=== PATIENT | male | born 1960 | race Caucasian/White ===

== ENCOUNTER 2018-03-16 01:18 | Observation (INO) | payer OTHER ==
[2018-03-16] VITALS (12 sets, daily range): BP systolic 105–136; BP diastolic 70–86
[~2018-03-16] VITALS: Ht 172.7 cm; Wt 93.9 kg
[~2018-03-16 01:18] MED LIST: ALFU10TA9 PO; TRAM-420 PO
[2018-03-16] MEDS ORDERED: NORMOSOL R SOLN(*) 1000 ML BAG 1,000 ML IV PRN (06:00)
[2018-03-16] MEDS ORDERED: LIDOCAINE/SOD BICARB 8.4% SYR ID ONE (06:00)
[2018-03-16] MEDS ORDERED: ceFAZolin(*) 2GM/D5W 50ML 50 ML IVPB ONE (06:00)
[2018-03-16] MEDS ORDERED: FAMOTIDINE 20 MG TAB PO ONE (06:00)
[2018-03-16] MEDS ORDERED: MIDAZOLAM 2 MG/2 ML VIAL IVP PRN (06:00)
[2018-03-16] MEDS ORDERED: THROMBIN (BOVINE) 20,000 UNIT VIAL ONE (06:10)
[2018-03-16] MEDS ORDERED: ONDANSETRON 4 MG/2 ML VIAL ONE (06:44)
[2018-03-16] MEDS ORDERED: LIDOCAINE MPF 1% 5 ML VIAL ONE (06:44)
[2018-03-16] MEDS ORDERED: PROPOFOL EMUL(*) 10MG/ML 20 ML 40 ML ONE (06:44)
[2018-03-16] MEDS ORDERED: DEXAMETHASONE SOD PHOS 10MG/ML ONE (06:44)
[2018-03-16] MEDS ORDERED: fentaNYL CITR 100 MCG/2 ML AMP ONE ×5 (06:45→09:55)
[2018-03-16] MEDS ORDERED: hydrALAZINE HCL 20 MG/ML VIAL ONE (07:35)
--- NOTE | 2018-03-16 07:53 | RADIOLOGY IMAGING REPORT ---
FACILITY: [facility] - [place] PATIENT NAME: Vijay Solis : 1960 MR: [id number] V: [id number] EXAM DATE: ORDERING PHYSICIAN: ROSENDO JACOBSEN TECHNOLOGIST: Location: [facility] [place] Patient: Vijay Solis : 1960 Visit/Account:[id number] Date of Sevice: 03/16/2018 LUMBAR SPINE 1 VIEW HISTORY: L3-4 disc herniation. COMPARISON: None. TECHNIQUE: Lateral view of the lumbar spine.. FINDINGS: There are 5 nonrib-bearing lumbar type vertebral bodies. Lateral view of the lumbar spine w as obtained. There are retractors posterior to the L3 and L4 vertebral bodies. There are surgical spo nge and surgical instrument posterior to the L2-3 disc space. There is degenerative change of the spi ne, greatest at L3-4. No listhesis. IMPRESSION: 1. Intraoperative lumbar spine x-rays as above. Report Dictated By: Fela Short at 03/16/2018 7:46 AM Report E-Signed By: Fela Short at 03/16/2018 7:48 AM WSN:[id number]
[2018-03-16] MEDS ORDERED: SUGAMMADEX SOD 500 MG/5 ML SDV ONE (08:51)
[2018-03-16] MEDS ORDERED: SUGAMMADEX SOD 200 MG/2 ML SDV ONE ×2 (08:51)
[2018-03-16] MEDS ORDERED: diphenhydrAMINE 25 MG CAP PO PRN (09:50)
[2018-03-16] MEDS ORDERED: APAP/HYDROCODONE 325/5 TAB PO PRN (09:50)
[2018-03-16] MEDS ORDERED: BENZOCAINE/MENTHOL 1 EACH LOZG PO PRN (09:50)
[2018-03-16] MEDS ORDERED: LR(*) 1000 ML BAG 1,000 ML IV PRN (09:50)
[2018-03-16] MEDS ORDERED: BISACODYL 10 MG SUPP PR PRN (09:50)
[2018-03-16] MEDS ORDERED: MAGNESIUM HYDROXIDE* 30ML UDCP PO PRN (09:50)
[2018-03-16] MEDS ORDERED: ACETAMINOPHEN 500 MG TAB PO PRN (09:50)
[2018-03-16] MEDS ORDERED: ACETAMINOPHEN(*)1000 MG/100 ML 100 ML IVPB PRN (09:50)
[2018-03-16] MEDS ORDERED: HYDROmorphone HCL 2 MG/ML SDV IVP PRN (09:50)
[2018-03-16] MEDS ORDERED: FLUSH 10 ML SYR IVP PRN (09:50)
[2018-03-16] MEDS ORDERED: ONDANSETRON 4 MG/2 ML VIAL IVP PRN (09:50)
[2018-03-16] MEDS ORDERED: HYDROmorphone HCL 2 MG/ML SDV ONE (10:10)
[2018-03-16] MEDS: oxyCODONE HCL 5 MG CAP PO PRN ×3 (11:43→23:54)
--- NOTE | 2018-03-16 11:50 | Hospitalist Consultation ---
History of Present Illness Requesting Physician Dr. Dodd Reason for Consult Medication Management Chief Complaint s/p laminectomies History of Present Illness He was admitted s/p laminectomies. It was reported the surgery went well and without complication. History Problems: (1) BPH (benign prostatic hyperplasia) Status: Chronic Home Meds Reported Medications Tramadol Hcl (TRAMADOL HCL) 50 Mg Tablet, 50-100 MG PO Q4-6H Y for PAIN, TAB 03/09/18 Alfuzosin Hcl (ALFUZOSIN HCL) 10 Mg Tab.er.24h, 10 MG PO QHS 03/09/18 Allergies: Coded Allergies: No Known Drug Allergies (Unverified , 03/09/18) Hx Smoking: Yes (1 PPD X 30 YRS. QUIT 2011) Smoking Status: Former Smoker Caffeine Intake: Coffee, Soda Caffeine/Cups Per Day: 4 Hx Alcohol Use: Yes (Occaaionally with meals) Alcohol Used: Beer, Wine Hx Substance Use Disorder: No Social Drug Use: Never History of IV Drug Use: No Review of Systems All Systems Reviewed/Normal: Yes, Except as Noted Exam Vital Signs Vital Signs Date Time Temp Pulse Resp B/P (MAP) Pulse Ox O2 Delivery O2 Flow Rate FiO2 03/16/18 11:24 94 Nasal Cannula 4.0 03/16/18 11:00 73 18 03/16/18 05:27 97.6 136/86 (103) General Appearance: Alert, Awake, No Acute Distress, Afebrile Neuro: No Gross deficits Cardiovascular: Regular Rate and Rhythm Respiratory: No Respiratory Distress, Clear to Auscultation GI: Abd Soft and Non-Tender Psych: Alert & Oriented X3, Appropriate Mood & Affect Assessment and Plan Problems: (1) S/P laminectomy Status: Acute Assessment & Plan: Followed by Dr. Dodd (2) BPH (benign prostatic hyperplasia) Status: Chronic Assessment & Plan: He is on chronic treatment with Alfuzosin. Venous Thromboembolism Antithrombotics Is Pt On Any Antithrombotics?: No Prophylaxis Tx Contraindicated Pharmacological Contraindicati: Surgical Contraindication FINESSE MOORE LOSS PREVENTION AGENT March 16, 2018 11:50
[2018-03-16] MEDS ORDERED: DOCU240C84 PO (14:30)
[2018-03-16] MEDS ORDERED: LOR5/325 PO (14:31)
[2018-03-16] MEDS ORDERED: DIA5 PO (14:33)
[2018-03-16] MEDS ORDERED: NS(*) 0.9% 250 ML BAG 250 ML ONE (16:41)
[2018-03-16] MEDS: ceFAZolin(*) 2GM/D5W 50ML 50 ML IVPB SCH (16:43)
[2018-03-16] MEDS ORDERED: ALFUZOSIN HCL 10 MG TABCR PO SCH ×2 (21:00)
[2018-03-16] MEDS: DOCUSATE SODIUM 100 MG CAP PO SCH (21:12)
[2018-03-16] MEDS: DIAZEPAM 5 MG TAB PO PRN (21:16)
[2018-03-17] MEDS: ceFAZolin(*) 2GM/D5W 50ML 50 ML IVPB SCH ×2 (01:06→08:55)
[2018-03-17 03:50] VITALS: BP 114/65
[2018-03-17] MEDS: DIAZEPAM 5 MG TAB PO PRN ×2 (03:58→10:09)
[2018-03-17] MEDS: oxyCODONE HCL 5 MG CAP PO PRN ×2 (05:00→08:56)
[2018-03-17 07:40] VITALS: BP 127/77
[2018-03-17] MEDS ORDERED: LOR5/325 PO (07:56)
[2018-03-17] MEDS ORDERED: DOCU240C84 PO (07:58)
[2018-03-17] MEDS ORDERED: DIA5 PO (07:58)
--- NOTE | 2018-03-17 07:59 | Hospitalist Progress Note ---
Subjective Progress Notes Subjective He has no concerns this morning. He states he is ready to go home. Patient Complains of: Cardiovascular: No: Chest Pain Respiratory: No: Shortness of Breath Physical Exam Vital Signs Date Time Temp Pulse Resp B/P (MAP) Pulse Ox O2 Delivery O2 Flow Rate FiO2 03/17/18 05:48 92 Room Air 03/17/18 03:50 99.1 20 114/65 (81) 1.0 03/16/18 23:51 82 General Appearance: Alert, Awake, No Acute Distress, Afebrile Neuro: No Gross deficits Cardiovascular: Regular Rate and Rhythm Respiratory: No Respiratory Distress, Clear to Auscultation GI: Soft and Non-Tender Psych: Alert & Oriented X3, Appropriate Mood & Affect Assessment and Plan Problems: (1) S/P laminectomy Status: Acute Assessment & Plan: Followed by Dr. Dodd (2) BPH (benign prostatic hyperplasia) Status: Chronic Assessment & Plan: He is on chronic treatment with Alfuzosin. Exam Sepsis Risk: No Definite Risk FINESSE MOORE CERTIFIED ORTHOTIST PRACTICE MANAGER March 17, 2018 07:59
[2018-03-17] MEDS: DOCUSATE SODIUM 100 MG CAP PO SCH (08:53)
[2018-03-17 09:24] VITALS: Ht 172.7 cm; Wt 93.9 kg
--- NOTE | 2018-03-17 15:31 | OPERATIVE REPORT 1 ---
EVENT DATE: March 16, 2018 SURGEON: Jose Dodd MD ANESTHESIOLOGIST: Coy Messina MD ANESTHESIA: General endotracheal anesthesia. RAILROAD INSPECTOR: KIM Mccoy PREOPERATIVE DIAGNOSES Recurrent right L4-L5 disk herniation with right L4 and L5 radiculopathy and bilateral lower extremity neurogenic claudication. POSTOPERATIVE DIAGNOSES 1. Recurrent right L4-L5 disk herniation with right L4 and L5 radiculopathy and bilateral lower extremity neurogenic claudication. 2. Spinal stenosis at L3-L4. PROCEDURE PERFORMED L3 to L5 revision laminectomy and discectomy. INTRAVENOUS FLUIDS 1600 mL ESTIMATED BLOOD LOSS 100 mL IMPLANTS USED None. SPECIMENS None. DRAINS None. COMPLICATIONS None. DISPOSITION Post-anesthesia care unit. INDICATIONS FOR SURGERY Mr. Solis is a 57-year-old male who several months ago underwent L4-L5 laminectomy and discectomy. He did very well initially and then had a recurrence of his right lower extremity pain, numbness, and tingling. This was primarily in an L4 and L5 distribution. In addition, he did note some bilateral lower extremity weakness and heaviness with prolonged ambulation suggestive of a neurogenic claudication. We reimaged his spine and found a recurrent disk herniation lying just medial to the right L4 pedicle. In addition to this, there was [id number] bilateral lateral recess stenosis at L3-L4 that seemed to be putting significant compression on the neural elements. Secondary to ongoing pain, numbness, and tingling in his legs , he was offered and elected to undergo a revision surgery in the form of an L3 to L5 laminectomy with L4-L5 discectomy. Prior to surgery, I explained in detail to the patient possible risks of surgery. This included the risk of bleeding, infection, nerve root injury, spinal fluid leak, meningitis, persistent and/or worsening pain, , blindness, sexual dysfunction, autonomic nervous system dysfunction, and other unforeseen medical and surgical complications. An understanding that spinal surgery is more predictive in eliminating extremity discomfort than axial spine pain was stressed. The increased risks secondary to this being a revision procedure were also discussed. DESCRIPTION OF PROCEDURE On the day of surgery, the patient was met in the preoperative hold area, and all questions were answered. The operative site was identified and marked by myself. The patient was brought in good condition to the operating room, and after succumbing to anesthesia, was placed in the prone position on a Jose Cruz table. All bony protuberances and soft tissues were well padded in the standard fashion. Care was taken to maintain appropriate perfusion pressures during anesthesia. Preoperative antibiotics were administered according to the appropriate timing schedule. At the conclusion of the procedure, sponge and needle counts were correct times two. Final timeout was undertaken to confirm correct patient, correct levels, and correct surgery. The patient was then prepped and draped in the standard sterile orthopedic fashion. An incision was made over the intended surgical levels, and sharp dissection was carried out down to the posterior elements. Soft tissues were elevated off the posterior elements in a subperiosteal manner , and a lateral radiograph was obtained to confirm correct spinal levels. The spinous process of L3 was then removed with a Leksell rongeur, and the midline of that lamina was thinned. A Myers curette was used to undermine the superior insertion of the ligamentum flavum from the inferior aspect of the L3 lamina. The canal was entered, and a Po elevator was used to separate the dura and any dural adhesions from surrounding soft tissue and bone. Kerrison 3.0 and 4.0 punches were used to perform midline decompression. Bilateral lateral recess decompressions were then performed at that L3-L4 level. Attention was then turned distally, and the Marston elevator was used to tease any scar material away from the dura. As this was accomplished, bilateral lateral recess revision decompressions were performed at L4-L5. On the right side, I mobilized the dura using the Po elevator anterior to the dura in the nerve root, and I was able to retract the dura and the L5 nerve root medially. A relatively large free disk fragment was identified and removed. The Marston elevator was then used to explore the floor of the canal, sweeping and searching for further disk fragments. All loose disk fragments were removed. The wound was then irrigated with copious sterile saline solution. Bilateral lateral recesses were once again checked at the L3-L4 and L4-L5 levels. The foramina were widely patent for the L3, L4,. and L5 nerve roots. The wound was once again irrigated with copious sterile saline solution and then closed in layers using interrupted sutures for the deep fascia, inverted interrupted sutures for the subcutaneous tissue, and a running subcuticular skin stitch. Sponge and needle counts were correct times two. POSTOPERATIVE CARE PLAN Mr. Solsi will be discharged home once he meets discharge criteria. This may be today, although he may require a single night's stay in the hospital. He will follow up with me in two weeks' time for wound check and examination. ALEC
== END 2018-03-17 08:23 | disposition home or self-care (01) ==
LOC: OR 01:18 → MED 11:11
PROVIDERS: ADMIT Orthopaedic Surgery; ATTEND Orthopaedic Surgery
DX: M51.16 Intervertebral disc disorders with radiculopathy, lumbar region (principal); M48.062 Spinal stenosis, lumbar region with neurogenic claudication
CPT/HCPCS: 36415; 63030; 63035; 72020; 86850; 86900; 86901; 97116; 97161; G0378; J0131; J0360; J1100; J1170; J2001; J2405; J2704; J3010; J7050; J0690

== ENCOUNTER 2018-08-26 00:38 | Inpatient (IN) | payer OTHER ==
[~2018-08-26] VITALS: Ht 175.3 cm; Wt 91.6 kg
[2018-08-26] VITALS (8 sets, daily range): BP systolic 119–140; BP diastolic 79–90
[~2018-08-26 00:38] MED LIST changes: +DIA5 PO; +DOCU240C84 PO; +LOR5/325 PO
[2018-08-26] MEDS ORDERED: ROPIVACAINE 0.2% 20 ML VIAL ONE (09:54)
[2018-08-26] MEDS ORDERED: THROMBIN (BOVINE) 20,000 UNIT VIAL ONE (09:54)
[2018-08-26] MEDS ORDERED: PROPOFOL EMUL(*) 10MG/ML 20 ML 20 ML ONE (10:03)
[2018-08-26] MEDS ORDERED: fentaNYL CITR 250 MCG/5 ML AMP ONE (10:03)
[2018-08-26] MEDS ORDERED: LIDOCAINE MPF 1% 5 ML VIAL ONE (10:04)
[2018-08-26] MEDS ORDERED: ONDANSETRON 4 MG/2 ML VIAL ONE (10:04)
[2018-08-26] MEDS ORDERED: PROPOFOL EMUL(*) 10MG/ML 20 ML 60 ML ONE ×2 (10:19→14:37)
[2018-08-26] MEDS ORDERED: NS 0.9% 20 ML SDV 20 ML ONE (10:22)
[2018-08-26] MEDS ORDERED: REMIFENTANIL HCL 1 MG VIAL ONE (10:31)
[2018-08-26] MEDS ORDERED: KETAMINE HCL 200 MG/20 ML MDV ONE (10:32)
[2018-08-26] MEDS ORDERED: MIDAZOLAM 2 MG/2 ML VIAL IVP PRN (12:25)
[2018-08-26] MEDS ORDERED: LIDOCAINE/SOD BICARB 8.4% SYR ID ONE (12:25)
[2018-08-26] MEDS ORDERED: PREGABALIN 150 MG CAPSULE PO ONE (12:25)
[2018-08-26] MEDS ORDERED: ACETAMINOPHEN 500 MG TAB PO ONE (12:25)
[2018-08-26] MEDS ORDERED: NORMOSOL R SOLN(*) 1000 ML BAG 1,000 ML IV PRN (12:25)
[2018-08-26] MEDS ORDERED: ceFAZolin(*) 2GM/D5W 50ML 50 ML IVPB ONE (12:25)
[2018-08-26] MEDS ORDERED: FAMOTIDINE 20 MG TAB PO ONE (12:25)
[2018-08-26] MEDS ORDERED: SUCCINYLCHOL CHL 200MG/10ML VL ONE (14:15)
[2018-08-26] MEDS ORDERED: HYDROmorphone HCL 2 MG/ML SDV ONE (14:26)
[2018-08-26] MEDS ORDERED: fentaNYL CITR 100 MCG/2 ML AMP ONE ×2 (16:55→17:34)
[2018-08-26] MEDS ORDERED: diphenhydrAMINE 25 MG CAP PO PRN (17:15)
[2018-08-26] MEDS ORDERED: BISACODYL 10 MG SUPP PR PRN (17:15)
[2018-08-26] MEDS ORDERED: ACETAMINOPHEN 500 MG TAB PO PRN (17:15)
[2018-08-26] MEDS ORDERED: ONDANSETRON 4 MG/2 ML VIAL IVP PRN (17:15)
[2018-08-26] MEDS ORDERED: FLUSH 10 ML SYR IVP PRN (17:15)
[2018-08-26] MEDS ORDERED: HYDROmorphone HCL 2 MG/ML SDV IVP PRN (17:15)
[2018-08-26] MEDS ORDERED: APAP/HYDROCODONE 325/5 TAB PO PRN (17:15)
[2018-08-26] MEDS ORDERED: BENZOCAINE/MENTHOL 1 EACH LOZG PO PRN (17:15)
[2018-08-26] MEDS ORDERED: ACETAMINOPHEN(*)1000 MG/100 ML 100 ML IVPB PRN (17:15)
[2018-08-26] MEDS ORDERED: MAGNESIUM HYDROXIDE* 30ML UDCP PO PRN (17:15)
[2018-08-26] MEDS ORDERED: LR(*) 1000 ML BAG 1,000 ML IV PRN (17:15)
--- NOTE | 2018-08-26 18:42 | Hospitalist Progress Note ---
Subjective Progress Notes Subjective Patient seen post-op. Reviewed PMHx (BPH, lumbar disc disease) and medications (Uroxatral). At present he reports doing well. No CP/SOB/N/V. Physical Exam Vital Signs Date Time Temp Pulse Resp B/P (MAP) Pulse Ox O2 Delivery O2 Flow Rate FiO2 08/26/18 18:22 98.2 63 16 140/90 (107) 94 Nasal Cannula 2.0 General Appearance: Alert, Awake Cardiovascular: Regular Rate and Rhythm Respiratory: Clear to Auscultation Psych: Alert & Oriented X3 Assessment and Plan Problems: (1) BPH (benign prostatic hyperplasia) Status: Chronic Assessment & Plan: Will continue his alfuzosin 10mg qHS. (2) S/P lumbar fusion Status: Acute Assessment & Plan: He appears to have tolerated OR/anesthesia fairly well. As per Dr. Dodd. BREA URENA MD Aug 26, 2018 18:41
[2018-08-26] MEDS: oxyCODONE HCL 5 MG CAP PO PRN (19:29)
--- NOTE | 2018-08-26 20:02 | RADIOLOGY IMAGING REPORT ---
FACILITY: [facility] - [place] PATIENT NAME: Vijay Solis : 1960 MR: [id number] V: [id number] EXAM DATE: ORDERING PHYSICIAN: ROSENDO JACOBSEN TECHNOLOGIST: Location: [facility] - [place] Patient: Vijay Solis : 1960 Visit/Account:[id number] Date of Sevice: 08/26/2018 Study: C-ARM FLUORO 1 HR Indication: Pain Comparison study: None available Findings: 3 intraoperative spot films demonstrates the presence of a posterior L4-5 fusion and discec darell. A fluoroscopy exposure of 2.18 mGym2 DAP was recorded. IMPRESSION: Intraoperative spot films from an L4-5 posterior fusion and discectomy. Report Dictated By: Wade Zepeda at 08/26/2018 7:54 PM Report E-Signed By: Wade Zepeda at 08/26/2018 7:58 PM WSN:[id number]
[2018-08-26] MEDS: ALFUZOSIN HCL 10 MG TABCR PO SCH (20:51)
[2018-08-26] MEDS: DIAZEPAM 5 MG TAB PO PRN (20:51)
[2018-08-26] MEDS: DOCUSATE SODIUM 100 MG CAP PO SCH (20:51)
--- NOTE | 2018-08-26 22:02 | OPERATIVE REPORT 1 ---
EVENT DATE: August 26, 2018 SURGEON: Jose oDdd MD ANESTHESIOLOGIST: Eliot Villatoro MD ANESTHESIA: General endotracheal anesthesia. ADULT CAREGIVER: KIM Luna PREOPERATIVE DIAGNOSES 1. Left-sided L4-L5 foraminal stenosis with left L4 radiculopathy. 2. Recurrent herniated nucleus pulposus L4-L5. POSTOPERATIVE DIAGNOSIS 1. Left-sided L4-L5 foraminal stenosis with left L4 radiculopathy. 2. Recurrent herniated nucleus pulposus L4-L5. PROCEDURE PERFORMED L4-L5 minimally invasive transforaminal lumbar interbody fusion. INTRAVENOUS FLUIDS 1700 mL ESTIMATED BLOOD LOSS 60 mL IMPLANTS USED 1. An 11 mm, size large curvilinear interbody spacer from [employer]. 2. Pedicle screws 6.5 mm x 45 mm from [employer] times four. 3. Connecting rods 5.5 mm x 40 mm from [employer] times two. 4. Locking caps from [employer] times four. SPECIMENS None. DRAINS None. COMPLICATIONS None. DISPOSITION Post-anesthesia care unit. INDICATIONS FOR SURGERY Mr. Solis is a 58-year-old gentleman who many months ago underwent an L4-L5 microdiscectomy. He initially did very well and then had a return of his pain. New MRI showed a recurrent disk herniation. I offered him the option of a revision diskectomy or a laminectomy, and he chose laminectomy. We performed the laminectomy/discectomy, and again, he had excellent relief of his symptoms for several months. Unfortunately, his symptoms again returned, and a new MRI showed yet another disk herniation, this time in the foramen on the left side severely compressing the L4 nerve root in the foramen. He went for an epidural steroid injection of the L4 nerve and had excellent relief, but only briefly. Secondary to this, I offered him L4-L5 minimally invasive transforaminal interbody fusion. He wished to proceed. Prior to surgery, I explained in detail to the patient the possible risks of surgery. These risks include bleeding, infection, damage to surrounding structures, nerve root injury, spinal fluid leak, meningitis, persistent and/or worsening pain, need for further surgery, failure of instrumentation, , blindness, sexual dysfunction, autonomic nervous system dysfunction, and other unforeseen medical and surgical complications. An understanding that spinal surgery in general is more predictive at improving extremity discomfort than axial spine pain was stressed. DESCRIPTION OF PROCEDURE On the day of surgery, the patient was met in the preoperative hold area, and all questions were answered. The operative site was identified and marked by myself. The patient was brought in good condition to the operating room, and after succumbing to anesthesia, was positioned in the prone position on a Jose Cruz table. Care was taken to maintain appropriate perfusion pressures during anesthesia. All bony protuberances and soft tissues were well padded in the standard fashion. Preoperative antibiotics were administered according to the appropriate timing schedule. At the conclusion of the procedure, sponge and needle counts were correct times two. A final timeout was undertaken by members of the operating team to confirm correct patient, correct levels, and correct surgery. Fluoroscopy was brought over the patient, and a wire was used to sravani out the mid points of the pedicles in the superior to inferior plane and a point approximately 1.5 cm lateral to the lateral borders of the pedicles in the sagittal plane. The patient was then prepped and draped in the standard sterile orthopedic fashion, and Britt type incisions were made bilaterally. Sharp dissection was carried out down to the lumbodorsal fascia which was divided with the Bovie, and then blunt finger dissection was used in between the multifidus and longissimus muscles, coming down onto starting points for pedicle screws. Fluoroscopy was brought into the field, and Jamshidi needles were used to cannulate the pedicles bilaterally at L4 and L5. This was accomplished on the right side by placing the Jamshidi needles at the 3 o'clock position and then advancing them under fluoroscopic guidance through the isthmus of the pedicle. On the left, this was accomplished by first docking the Jamshidi needles at the 9 o'clock position and again advancing them through the pedicles under fluoroscopic guidance. Guidewires were then placed. The fluoroscopy was then turned to a lateral view to ensure that the guidewires were in appropriate position through the pedicles and into the vertebral bodies. A cannulated tap was then used to tap the pedicles, and the taps were tested with neurophysiologic monitoring. All tested over 20 milliamps. We then selected 6.5 mm x 45 mm screws, and on the right side, we placed those with the minimally invasive towers attached. On the left, we placed them with 90 mm retractor blades from the minimally invasive retractor. Once the screws were all placed, they were tested with neurophysiologic monitoring, and again, all tested greater than 20 milliamps verifying absence of bony breaching. On the left side, the minimally invasive retractor was attached to the blades, and a medial blade was utilized as well. I was able to then use an osteotome to osteotomize the pars interarticularis of L4, taking care not to osteotomize the pedicle above. In this manner, I was ultimately able to remove the inferior articular process of L4 and then a majority of the superior articular process of L5. This afforded me access to the interforaminal space. Meticulous hemostasis was obtained, and the disk was identified. I skeletonized the pedicle of L5 in order to do this and ensured that there was no ongoing compression on the neural elements either exiting or traversing. An annulotomy knife was used to perform an annulotomy in the posterolateral disk on the left side of the L4-L5 disk. A combination of progressively larger josé, double angled and single angled curettes, and a pituitary rongeur was used to perform a near total discectomy. I then chose an 11 mm spacer, and we placed that in the interbody space and obtained AP and lateral images verifying appropriate size. We then took local bone that had been run through the bone mill and packed that into the anterior aspect of the disk space after irrigating with copious sterile saline solution and ensuring that the endplates of the vertebral bodies were denuded of all cartilage. The 11 mm curvilinear size large, 6-degree lordotic graft was then inserted into the interbody space under fluoroscopic guidance. The pitchfork-type device was then used to rotate it into its appropriate position, and AP and lateral imaging studies confirmed excellent positioning of the interbody device. The minimally invasive retractor was removed, and minimally invasive towers were then attached to the screw shanks on the left. We chose 40 mm connecting rods, and these were placed under fluoroscopic guidance. Locking caps were then placed into the tulips, tightened, and then finally tightened. We confirmed appropriate placement of all hardware with imaging studies and the removed the towers. The wounds were washed with sterile saline solution, and final images were obtained that showed appropriate positioning of all of the implants. The wounds were then closed in layers using interrupted sutures for the superficial fascia and a running subcuticular skin stitch. Sponge and needle counts were correct times two. POSTOPERATIVE CARE PLAN The patient will remain in the hospital until he meets discharge criteria. He will follow up in my clinic in two weeks' time for wound check and examination. ALEC
[2018-08-26] MEDS: ceFAZolin(*) 2GM/D5W 50ML 50 ML IVPB SCH (22:14)
[2018-08-27] MEDS: oxyCODONE HCL 5 MG CAP PO PRN ×5 (01:42→21:42)
[2018-08-27 03:10] VITALS: BP 116/78
[2018-08-27] MEDS: DIAZEPAM 5 MG TAB PO PRN (03:10)
[2018-08-27] MEDS: ceFAZolin(*) 2GM/D5W 50ML 50 ML IVPB SCH ×2 (05:52→14:04)
[2018-08-27] MEDS ORDERED: DIA5 PO (07:25)
[2018-08-27] MEDS ORDERED: LOR5/325 PO (07:26)
[2018-08-27] MEDS ORDERED: DOCU240C84 PO (07:27)
[2018-08-27 07:30] VITALS: BP 125/77
--- NOTE | 2018-08-27 08:18 | Hospitalist Progress Note ---
Subjective Progress Notes Subjective He reports some pain/stiffness in surgical site. Otherwise no complaints - no CP/SOB/N/V. Physical Exam Vital Signs Date Time Temp Pulse Resp B/P (MAP) Pulse Ox O2 Delivery O2 Flow Rate FiO2 08/27/18 07:30 98.3 77 14 125/77 (93) 91 Nasal Cannula 2.0 Intake and Output 08/27/18 07:00 Intake Total 6460 ml Output Total 1150 ml Balance 5310 ml Intake Oral 2260 ml IV Total 2250 ml Other 1950 ml Output Urine Total 1050 ml Estimated Blood Loss 100 ml General Appearance: Alert, Awake Cardiovascular: Regular Rate and Rhythm Respiratory: Clear to Auscultation Assessment and Plan Problems: (1) BPH (benign prostatic hyperplasia) Status: Chronic Assessment & Plan: Will continue his alfuzosin 10mg qHS. (2) S/P lumbar fusion Status: Acute Assessment & Plan: He appears to be stable post-op. As per Dr. Dodd. Exam Sepsis Risk: No Definite Risk BREA URENA MD Aug 27, 2018 08:18
[2018-08-27] MEDS: DOCUSATE SODIUM 100 MG CAP PO SCH ×2 (08:30→21:42)
[2018-08-27 12:27] VITALS: BP 123/70
[2018-08-27 17:06] VITALS: Ht 175.3 cm; Wt 91.6 kg
[2018-08-27 17:44] VITALS: BP 123/70
[2018-08-27 20:53] VITALS: BP 131/71
[2018-08-27] MEDS: ALFUZOSIN HCL 10 MG TABCR PO SCH (21:42)
[2018-08-28] MEDS: oxyCODONE HCL 5 MG CAP PO PRN ×2 (00:50→09:19)
[2018-08-28 07:02] VITALS: BP 121/68
--- NOTE | 2018-08-28 07:54 | Hospitalist Progress Note ---
Subjective Progress Notes Subjective 58M ABILIO overnight, improved activity with PT yesterday in afternoon. Medically appears stable for discharge when ok with ortho. Patient Complains of: Gastrointestinal: No Nausea, No Vomiting Physical Exam Vital Signs Date Time Temp Pulse Resp B/P (MAP) Pulse Ox O2 Delivery O2 Flow Rate FiO2 08/28/18 07:11 90 08/28/18 07:05 Nasal Cannula 1.5 08/28/18 07:02 98.5 93 16 121/68 (85) Intake and Output 08/28/18 07:00 Intake Total 530 ml Output Total 3450 ml Balance -2920 ml Intake Oral 480 ml IV Total 50 ml Output Urine Total 3450 ml # Voids 3 General Appearance: Alert, Awake, No Acute Distress Neuro: No Gross deficits Eyes: PERRLA ENT: Normal Neck: No Masses Cardiovascular: Normal Rhythm & Peripheral Pulses Respiratory: No Respiratory Distress GI: Soft and Non-Tender Musculoskeletal: No Weakness/Pain Extremities: Soft and Non Tender Integumentary: Skin Intact without Lesion / Mass Psych: Alert & Oriented X3 Assessment and Plan Problems: (1) BPH (benign prostatic hyperplasia) Status: Chronic Assessment & Plan: Will continue his alfuzosin 10mg qHS. (2) S/P lumbar fusion Status: Acute Assessment & Plan: He appears to be stable post-op. As per Dr. Dodd. Exam Sepsis Risk: No Definite Risk ERNIE MAYBERRY DO Aug 28, 2018 07:54
[2018-08-28] MEDS: DOCUSATE SODIUM 100 MG CAP PO SCH (08:15)
== END 2018-08-28 09:25 | disposition home or self-care (01) | DRG 460 ==
LOC: OR 00:38 → MED 18:15
PROVIDERS: ADMIT Orthopaedic Surgery; ATTEND Orthopaedic Surgery
PROC: 0ST20ZZ Resection of Lumbar Vertebral Disc, Open Approach (ICD-10-PCS; 2018-08-26)
PROC: 0SG00AJ Fusion of Lumbar Vertebral Joint with Interbody Fusion Device, Posterior Approach, Anterior Column, Open Approach (ICD-10-PCS; principal; 2018-08-26 14:17)
DX: M48.061 Spinal stenosis, lumbar region without neurogenic claudication (principal); M51.16 Intervertebral disc disorders with radiculopathy, lumbar region; N40.0 Benign prostatic hyperplasia without lower urinary tract symptoms; Z87.891 Personal history of nicotine dependence
CPT/HCPCS: 36415; 76000; 86850; 86900; 86901; 97161; J0330; J0690; J1170; J2001; J2250; J2405; J2704; J2795; J3010; J3490; J7050